=== PATIENT | female | born 1955 | race Caucasian/White ===

== ENCOUNTER → 2018-07-27 | Outpatient (CLI) | payer BC, OTHER ==
[~2018-07-27] MED LIST: AMBIEN10 MG PO; HCTZ 25MG25 MG PO; MULTIVITAMIN FO1 CAP PO; PREMPRO 0.625/21 TAB PO; PRILOSEC 20MG20 MG PO
== END ==
LOC: MC.RAD 14:53
DX: Z12.31 Encounter for screening mammogram for malignant neoplasm of breast (principal)

== ENCOUNTER → 2019-09-07 | Outpatient (CLI) | payer BC, OTHER | LOC: MC.RAD 08-16 14:00 | DX: Z12.31 Encounter for screening mammogram for malignant neoplasm of breast (principal) ==

== ENCOUNTER → 2020-10-31 | Outpatient (CLI) | payer BC, OTHER | LOC: MC.RAD 10:44 | DX: Z12.31 Encounter for screening mammogram for malignant neoplasm of breast (principal) ==

== ENCOUNTER → 2021-12-10 | Outpatient (CLI) | payer BC, MEDICARE, OTHER | LOC: MC.RAD 11-19 14:30 | DX: Z12.31 Encounter for screening mammogram for malignant neoplasm of breast (principal) ==

== ENCOUNTER 2022-02-19 06:47 | Day surgery (SDC) | payer MEDICARE, OTHER ==
[~2022-02-19] VITALS: Ht 162.6 cm; Wt 80.3 kg
[2022-02-19] MEDS ORDERED: PROTONIX 40MG T40 MG PO (07:45)
[2022-02-19] MEDS ORDERED: PRINZIDE 12.5 M1 TAB PO (07:45)
[2022-02-19] MEDS ORDERED: PREMPRO 0.45 MG1 TAB PO (07:47)
[2022-02-19] MEDS ORDERED: LIPITOR20 MG PO (07:47)
[2022-02-19 09:00] VITALS: BP 118/71; PULSE 62; TEMP 98
[2022-02-19 09:15] VITALS: BP 105/66; PULSE 58
[2022-02-19 09:30] VITALS: BP 108/66; PULSE 64
--- NOTE | 2022-02-19 09:41 | NUR ---
Initial visit request from patient; Grader Operator looked in on patient and offered encouragement and prayer prior to her tests. Grader Operator prayed for thorough testing and good results.
--- NOTE | 2022-02-19 10:05 | NUR ---
0900 PT TO BAY 3 PER CART FROM [facility]. VS OBTAINED. WATER AND MUFFIN GIVEN TO PT. 0945 IV DC'D AT THIS TIME. 0950 DISCHARGE EDUCATION COMPLETED WITH PT. VERBALIZED UNDERSTANDING OF HOME AND FOLLOW UP CARE. ALL QUESTIONS ANSWERED. DISCHARGE PAPERWORK GIVEN TO PT. 1005 PT OFF UNIT PER WHEELCHAIR. PT DISCHARGED TO HOME WITH PER PERSONAL VEHICLE.
[2022-02-19 10:40] VITALS: BP 111/78; PULSE 80; TEMP 98.4
== END 2022-02-19 10:05 | disposition home or self-care (01) ==
LOC: SDCO 06:47
DX: Z12.11 Encounter for screening for malignant neoplasm of colon (principal); K57.30 Diverticulosis of large intestine without perforation or abscess without bleeding; K64.0 First degree hemorrhoids; K64.4 Residual hemorrhoidal skin tags; Z80.0 Family history of malignant neoplasm of digestive organs
CPT/HCPCS: J2704; J3010; J7030

== ENCOUNTER → 2023-05-06 | Outpatient (CLI) | payer MEDICARE, OTHER ==
[~2023-05-06] MED LIST changes: +LIPITOR20 MG PO; +PREMPRO 0.45 MG1 TAB PO; +PRINZIDE 12.5 M1 TAB PO; +PROTONIX 40MG T40 MG PO
== END ==
LOC: CANSCHCLI → MC.RAD 13:13
DX: Z12.31 Encounter for screening mammogram for malignant neoplasm of breast (principal)